=== PATIENT | female | born 1995 | race Caucasian/White ===

== ENCOUNTER 2017-04-24 10:01 | Emergency (ER) | payer OTHER ==
[2017-04-24] MEDS ORDERED: DIPHENHYDRAMINE HCL 25 MG CAPSULE PO ONE (10:43)
[2017-04-24] MEDS ORDERED: LORAZEPAM 1 MG TABLET PO ONE (10:43)
--- NOTE | 2017-04-24 10:49 | ER Document Report ---
ED General - General Chief Complaint: Chest Pain Stated Complaint: CHEST PAIN Time Seen by Provider: 04/24/17 10:36 Mode of Arrival: Ambulatory Information source: Patient, Relative Notes: This 21-year-old female patient comes emergency room complaining of chest pain fast heart rate and allergic reaction to a weight loss metabolism booster she took this morning. Review of the ingredient shows it has niacin. She reports turning red and flushed in her face. She was feeling pins and needles and bee stinging sensations. She states her heart was racing. Now she is feeling quite shaky. TRAVEL OUTSIDE OF THE [place] IN LAST 30 DAYS: No - Related Data Allergies/Adverse Reactions: No Known Allergies Allergy (Verified 04/24/17 10:03) Past Medical History - General Information source: Patient, Relative - Social History Smoking Status: Current Every Day Smoker Cigarette use (# per day): Yes Chew tobacco use (# tins/day): No Smoking Education Provided: No Frequency of alcohol use: None Drug Abuse: None Lives with: Spouse/Significant other Family History: Reviewed & Not Pertinent Patient has suicidal ideation: No Patient has homicidal ideation: No - Medical History Medical History: Negative Past Surgical History: Reports: Hx Appendectomy - Page 3 years old, Other - Past surgeries around 3-5 years old Review of Systems - Review of Systems Constitutional: No symptoms reported EENT: No symptoms reported Cardiovascular: No symptoms reported Respiratory: No symptoms reported Gastrointestinal: No symptoms reported Genitourinary: No symptoms reported Female Genitourinary: Last menstrual period - Started yesterday, is normal and on time Musculoskeletal: No symptoms reported Skin: No symptoms reported Hematologic/Lymphatic: No symptoms reported Neurological/Psychological: No symptoms reported Physical Exam - Vital signs Vitals: Temp Pulse Resp BP Pulse Ox 97.3 F 93 20 131/65 H 100 04/24/17 10:17 04/24/17 10:17 04/24/17 10:17 04/24/17 10:17 04/24/17 10:17 Interpretation: Normal - General General appearance: Alert, Anxious In distress: Mild - Patient is shaking all over, has rapid pressured speech. Somewhat dramatic and histrionic with her descriptions. - HEENT Head: Normocephalic, Atraumatic, Other - She does have cell phone pictures of her face previously when it was quite erythematous and flushed. That has cleared now. Eyes: Normal Pupils: PERRL Pharynx: Normal Neck: Normal - Respiratory Respiratory status: No respiratory distress Breath sounds: Normal - Cardiovascular Rhythm: Regular Heart sounds: Normal auscultation Murmur: No - Abdominal Inspection: Normal - Back Back: Normal - Extremities General upper extremity: Normal inspection General lower extremity: Normal inspection - Neurological Neuro grossly intact: Yes - Psychological Associated symptoms: Anxious - Rapid speech - Skin Skin Temperature: Warm Skin Moisture: Dry Skin Color: Normal Course - Vital Signs Vital signs: Temp Pulse Resp BP Pulse Ox 97.3 F 93 20 131/65 H 100 04/24/17 10:17 04/24/17 10:17 04/24/17 10:17 04/24/17 10:17 04/24/17 10:17 - EKG Interpretation by Ut EKG shows normal: Sinus rhythm, [place], Intervals, QRS Complexes, ST-T Waves Rate: Normal - 99 Rhythm: NSR Discharge - Discharge Clinical Impression: Adverse reaction to niacin Qualifiers: Encounter type: initial encounter Qualified Code(s): T46.7X5A - Adverse effect of peripheral vasodilators, initial encounter Condition: Stable Disposition: HOME, SELF-CARE Additional Instructions: Medication Side Effects: Your unpleasant symptoms are due to a drug you're taking. These symptoms are a common side effect of the medicine. It's not a true allergy. We stop any unnecessary drugs when bothersome side effects occur. Sometimes we'll substitute a different type of drug. In other cases, we must continue the drug. If so, we try to find a way to decrease the side effects. Many side effects decrease with time. Call us if the symptoms don't go away. //////////////////////////////////////////////////////////////////////////////// //////////////////////////////////////////////////////////////////////////////// ////////////////// The red flushing and other sensations you had after taking the niacin are commonly experienced when people take that medication. You should avoid taking any medications or supplements that have not been prescribed to you. Follow-up with local medical doctor if any further problems. RETURN TO THE EMERGENCY ROOM IF ANY NEW OR WORSENING SYMPTOMS.
[2017-04-24 12:45] VITALS: BP 125/56
--- NOTE | 2017-04-24 18:50 | EKG REPORT ---
SEVERITY:- NORMAL ECG - SINUS RHYTHM : Confirmed by: Yasmany Ferrer MD 24-Apr-2017 18:49:31
== END 2017-04-24 12:45 | disposition home or self-care (01) ==
LOC: ER 10:01
DX: T46.7X5A Adverse effect of peripheral vasodilators, initial encounter (principal); R07.9 Chest pain, unspecified; F17.210 Nicotine dependence, cigarettes, uncomplicated
CPT/HCPCS: 93005; 93010; 99283

== ENCOUNTER 2017-06-16 20:47 | Emergency (ER) | payer OTHER ==
[2017-06-16 22:05] LABS: ALANINE AMINOTRANSFERASE 37 U/L (9-52); ALBUMIN 4.7 g/dL (3.5-5.0); ALKALINE PHOSPHATASE 79 U/L (38-126); ANION GAP 13 (5-19); ASPARTATE AMINO TRANSFERASE 18 U/L (14-36); BILIRUBIN,DIRECT 0.1 mg/dL (0.0-0.4); BILIRUBIN,TOTAL 0.6 mg/dL (0.2-1.3); BLOOD UREA NITROGEN 21 mg/dL (7-20); CALCIUM 10.1 mg/dL (8.4-10.2); CARBON DIOXIDE 23 mmol/L (22-30); CHLORIDE 104 mmol/L (98-107); GLUCOSE 83 mg/dL (75-110); LIPASE 87.8 U/L (23-300); POTASSIUM 4.2 mmol/L (3.6-5.0); SODIUM 140.1 mmol/L (137-145); TOTAL PROTEIN 7.2 g/dL (6.3-8.2)
[2017-06-16] MEDS ORDERED: KETOROLAC TROMETHAMINE INJ/PF 30 MG/1 ML SDV IM ONE (23:26)
--- NOTE | 2017-06-16 23:30 | ER Document Report ---
ED GI/ - General Chief Complaint: Abdominal Pain Stated Complaint: ABDOMINAL PAIN Time Seen by Provider: 06/16/17 23:17 Mode of Arrival: Ambulatory Information source: Patient TRAVEL OUTSIDE OF THE [place] IN LAST 30 DAYS: No - HPI Patient complains to provider of: Abdominal pain, Other - BACK PAIN Quality of pain: Achy Notes: 06/16/17 23:27 Patient is here with complaints of bilateral back pain that radiates around to the abdomen. She denies any injuries. She denies any nausea, vomiting, diarrhea. She denies any dysuria or hematuria. She denies any fevers. She states that the pain is been present for the last 4-5 days. The pain seems to come and go. Right now she states that the pain has improved. She states the pain seems to get better after she urinates. She denies any dysuria. She denies nausea, vomiting, diarrhea. She denies vaginal bleeding or vaginal discharge. She denies any rash. She denies bowel or bladder dysfunction. She denies fever. She denies IV drug use. She denies blood thinners. She denies any numbness, tingling, weakness or pain down the legs. No chest pain or shortness of breath. She had a prior appendectomy. She denies a history of kidney stones. She is having the pain, nothing in particular seems to make it better or worse. She has no other complaints at this time. - Related Data Allergies/Adverse Reactions: No Known Allergies Allergy (Verified 04/24/17 10:03) Past Medical History - Social History Smoking Status: Current Every Day Smoker Chew tobacco use (# tins/day): No Frequency of alcohol use: Occasional Drug Abuse: None Family History: Reviewed & Not Pertinent Patient has suicidal ideation: No Patient has homicidal ideation: No Renal/ Medical History: Denies: Hx Peritoneal Dialysis Past Surgical History: Reports: Hx Appendectomy - Page 3 years old, Other - Past surgeries around 3-5 years old Review of Systems - Review of Systems -: Yes All other systems reviewed and negative Physical Exam - Vital signs Vitals: Temp Pulse Resp BP Pulse Ox 98.0 F 84 20 120/81 100 06/16/17 20:56 06/16/17 20:56 06/16/17 20:56 06/16/17 20:56 06/16/17 20:56 - Notes Notes: GENERAL: alert, cooperative, nontoxic, no distress. HEAD: normocephalic, atraumatic EYES: conjunctiva pink without discharge, no external redness or swelling. EARS: no external swelling, no external redness NOSE: atraumatic, no external swelling MOUTH/THROAT: mucous membranes moist and pink, posterior pharynx without erythema, swelling, exudate. No trismus or drooling. NECK: soft, supple, full range of motion, no meningismus. CHEST: no distress, lungs clear and equal throughout. No wheezing, rales, rhonchi. CARDIAC: regular rate and rhythm, no murmur, normal capillary refill, normal pulses. No peripheral edema noted. ABDOMEN: soft, mild tenderness to the left lower and left mid abdomen. No rebound tenderness or guarding. No pelvic tenderness. No mass. BACK: No CVA tenderness. Mild tenderness to palpation along the lateral aspect of the lower back bilaterally. No rash. Full range of motion. EXTREMITIES: full range of motion of all extremities. No redness, no swelling. NEURO: alert and oriented A&O x 3, no focal deficits, full range of motion of all extremities. 5 out of 5 flexion and extension of the lower extremities bilaterally. Patellar and Achilles deep tendon reflexes are +2 bilaterally. Normal sensation with no saddle anesthesia. Patient can dorsiflex the great toes bilaterally. PYSCH: appropriate mood, affect. Patient is cooperative. SKIN: pink, warm, dry, no rash. Course - Re-evaluation Re-evalutation: 06/17/17 02:27 Patient is nontoxic appearing with stable vitals. The patient arrives with complaints of bilateral low back pain that radiates around into her side and lower abdomen. Pain seems to be intermittent. It seems to be positional in nature. She denies any trauma or injury. She has denies bowel or bladder dysfunction. She is on no blood thinners and denies any IV drug use. No fever. She has a benign neurological exam. No significant tenderness in her abdomen. No vaginal symptoms. Urinalysis shows no acute abnormality. Lab work is unremarkable aside from a slightly low hemoglobin of 11.7. I have no other hemoglobins to compare this to. CT of the abdomen and pelvis shows no acute abnormality per the radiologist. Pain is reproducible with movement as well as palpation of the bilateral low back. Believe this is most likely muscular skeletal in nature. The patient will be discharged home with a prescription for Naprosyn and Zanaflex. Follow-up if not better in the next 3- 5 days, sooner for increasing pain, high fever, persistent vomiting, bowel or bladder dysfunction, or for any further concerns. Patient has no sign of cauda equina, epidural abscess or bleed, discitis, osteomyelitis. The patient's emergency department workup and current diagnosis were explained to the patient and or family. Follow-up instructions were provided. Medications if prescribed were discussed. Instructions for when to return to the emergency department including specific worrisome symptoms were discussed with the patient and/or family. 06/17/17 02:30 The patient is noted to have elevated blood pressure during today's emergency department visit. The patient was informed of this finding. The patient was instructed that this may be related to pre-hypertension and requires further evaluation with a primary care provider. The patient has no hypertensive symptoms at this time. - Vital Signs Vital signs: Temp Pulse Resp BP Pulse Ox 98.0 F 84 20 120/81 100 06/16/17 20:56 06/16/17 20:56 06/16/17 20:56 06/16/17 20:56 06/16/17 20:56 - Laboratory Result Diagrams: 06/16/17 23:45 06/16/17 21:28 Laboratory results interpreted by me: 06/16/17 06/16/17 21:28 23:45 Hgb 11.4 L Hct 33.6 L BUN 21 H - Diagnostic Test Radiology reviewed: Image reviewed, Reports reviewed - CT abdomen and pelvis without acute abnormality. Discharge - Discharge Clinical Impression: Low back pain Qualifiers: Chronicity: acute Back pain laterality: bilateral Sciatica presence: without sciatica Qualified Code(s): M54.5 - Low back pain Abdominal pain Qualifiers: Abdominal location: lower abdomen, unspecified Qualified Code(s): R10.30 - Lower abdominal pain, unspecified Condition: Stable Disposition: HOME, SELF-CARE Instructions: Abdominal Pain ([facility]), Low Back Pain ([facility]) Additional Instructions: Take medications as prescribed. Follow-up with your doctor if not better in the next 3-5 days, follow-up sooner for increasing pain, high fever, persistent vomiting, difficulty controlling her bowels or bladder, numbness or weakness in the legs, or for any further concerns. Your blood pressure was elevated during today's visit. Have this rechecked with your doctor. Prescriptions: Naproxen [Naprosyn] 500 mg PO BID #20 tablet Tizanidine HCl [Zanaflex 4 Mg Tablet] 4 mg PO BID PRN #10 tablet PRN Reason: Forms: Elevated Blood Pressure, Smoking Cessation Education Referrals: [facility] [Provider Group] - Follow up as needed
[2017-06-16 23:53] LABS: ABSOLUTE EOSINOPHILS # (AUTO) 0.2 10^3/uL (0.0-0.6); ABSOLUTE LYMPHOCYTES (AUTO) 2.4 10^3/uL (0.5-4.7); ABSOLUTE MONOCYTES (AUTO) 0.7 10^3/uL (0.1-1.4); ABSOLUTE NEUT (AUTO) 3.4 10^3/uL (1.7-8.2); BASOPHILS % (AUTO) 0.4 % (0-2); EOSINOPHILS % (AUTO) 3.5 % (0-6); HEMATOCRIT 33.6 % (36.0-47.0); HEMOGLOBIN 11.4 g/dL (12.0-15.5); LYMPHOCYTES % (AUTO) 35.7 % (13-45); MEAN CORPUSCULAR HEMOGLOBIN 29.8 pg (27.0-33.4); MEAN CORPUSCULAR HGB CONC 34.1 g/dL (32.0-36.0); MEAN CORPUSCULAR VOLUME 88 fl (80-97); MONOCYTES % (AUTO) 10.1 % (3-13); PLATELET COUNT 216 10^3/uL (150-450); RED BLOOD COUNT 3.83 10^6/uL (3.72-5.28); RED CELL DISTRIBUTION WIDTH 13.5 % (11.5-14.0); SEGMENTED NEUTROPHILS % (AUTO) 50.3 % (42-78); TOTAL CELLS COUNTED % (AUTO) 100 %; WHITE BLOOD COUNT 6.8 10^3/uL (4.0-10.5)
[2017-06-17] LABS: APPEARANCE,URINE CLEAR; BILIRUBIN,URINE NEGATIVE (NEGATIVE); CALCIUM OXALATE CRYSTALS,URINE RARE /HPF; COLOR,URINE YELLOW; GLUCOSE, URINE NEGATIVE (NEGATIVE); KETONES,URINE NEGATIVE (NEGATIVE); LEUKOCYTE ESTERASE,URINE NEGATIVE (NEGATIVE); NITRITE,URINE NEGATIVE (NEGATIVE); PROTEIN,URINE NEGATIVE (NEGATIVE); URINE SPECIFIC GRAVITY 1.027; UROBILINOGEN,URINE NEGATIVE mg/dL (<2.0)
--- NOTE | 2017-06-17 01:43 | RADIOLOGY REPORT (SQ) ---
EXAM DESCRIPTION: CT ABDOMEN AND PELVIS WITHOUT CONTRAST CLINICAL HISTORY: BACK AND ABDO PAIN, IMPROVES WITH URINATION COMPARISON: None Available. TECHNIQUE: CT of the abdomen and pelvis without IV contrast. FINDINGS: Abdomen: The liver has normal size and density. No calcified gallstones. The spleen, pancreas, and adrenal glands are unremarkable. The kidneys have normal size and contour without evidence of hydronephrosis. No obstructing ureteral calculi. The aorta and IVC have normal caliber and position. No free intraperitoneal air. The stomach and duodenum have normal course. Pelvis: Uterus is not enlarged. Urinary bladder is unremarkable. No free pelvic fluid or lymphadenopathy. No dilated loops of large or small bowel. Postoperative change in the right lower quadrant. Reported appendectomy. The visualized lung bases are clear. No destructive bone lesions identified. 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 DLP: 1177.95 mGy-cm IMPRESSION: 1. No acute inflammatory or obstructive abnormality identified This exam was performed according to our departmental dose-optimization program, which includes automated exposure control, adjustment of the mA and/or kV according to patient size and/or use of iterative reconstruction technique.
[2017-06-17 02:48] VITALS: BP 119/65
== END 2017-06-17 02:48 | disposition home or self-care (01) ==
LOC: ER 20:47
DX: M54.5 Low back pain (principal); R10.30 Lower abdominal pain, unspecified
CPT/HCPCS: 99284; 96372; 36415; 83690; 85025; 81025; 80053; 81001; 74176; J1885